=== PATIENT | female | born 1960 | race Hispanic/Latino ===

== ENCOUNTER → 2017-05-29 | Outpatient (CLI) | payer MEDICARE ==
[2017-05-29 14:11] VITALS: BP 127/55
== END | disposition home or self-care (01) ==
LOC: WHH 10:30
PROVIDERS: ATTEND Podiatrist Foot & Ankle Surgery
DX: I83.013 Varicose veins of right lower extremity with ulcer of ankle (principal); L97.311 Non-pressure chronic ulcer of right ankle limited to breakdown of skin; E66.01 Morbid (severe) obesity due to excess calories; I89.0 Lymphedema, not elsewhere classified; I10 Essential (primary) hypertension
CPT/HCPCS: A6209; G0463

== ENCOUNTER → 2017-06-12 | Outpatient (CLI) | payer MEDICARE ==
[~2017-06-12] MED LIST: LIDOCAINE/PRILOCAINE CREAM 5GM TUBE TP ONE
[2017-06-12 14:48] VITALS: BP 130/52
== END | disposition home or self-care (01) ==
LOC: WHH 10:55
PROVIDERS: ATTEND Podiatrist Foot & Ankle Surgery
DX: E11.622 Type 2 diabetes mellitus with other skin ulcer (principal); L97.311 Non-pressure chronic ulcer of right ankle limited to breakdown of skin; I87.2 Venous insufficiency (chronic) (peripheral); I89.0 Lymphedema, not elsewhere classified; E66.01 Morbid (severe) obesity due to excess calories; I10 Essential (primary) hypertension
CPT/HCPCS: 11042; A6209; J3490

== ENCOUNTER → 2017-06-26 | Outpatient (CLI) | payer MEDICARE ==
[2017-06-26 13:28] VITALS: BP 141/64
== END | disposition home or self-care (01) ==
LOC: WHH 11:00
PROVIDERS: ATTEND Podiatrist Foot & Ankle Surgery
DX: E11.622 Type 2 diabetes mellitus with other skin ulcer (principal); L97.311 Non-pressure chronic ulcer of right ankle limited to breakdown of skin; I87.2 Venous insufficiency (chronic) (peripheral); I89.0 Lymphedema, not elsewhere classified; E66.01 Morbid (severe) obesity due to excess calories; I10 Essential (primary) hypertension
CPT/HCPCS: A6209; G0463

== ENCOUNTER → 2017-07-10 | Outpatient (CLI) | payer MEDICARE ==
[2017-07-10 15:22] VITALS: BP 135/72
== END | disposition home or self-care (01) ==
LOC: WHH 11:00
PROVIDERS: ATTEND Podiatrist Foot & Ankle Surgery
DX: I87.2 Venous insufficiency (chronic) (peripheral) (principal); L97.311 Non-pressure chronic ulcer of right ankle limited to breakdown of skin; I10 Essential (primary) hypertension; I89.0 Lymphedema, not elsewhere classified; E66.01 Morbid (severe) obesity due to excess calories
CPT/HCPCS: A6209; A6450; G0463

== ENCOUNTER → 2017-07-31 | Outpatient (CLI) | payer MEDICARE ==
[2017-07-31 12:09] VITALS: BP 127/50
== END | disposition home or self-care (01) ==
LOC: WHH 10:30
PROVIDERS: ATTEND Podiatrist Foot & Ankle Surgery
DX: E11.622 Type 2 diabetes mellitus with other skin ulcer (principal); L97.311 Non-pressure chronic ulcer of right ankle limited to breakdown of skin; I87.2 Venous insufficiency (chronic) (peripheral); I10 Essential (primary) hypertension; I89.0 Lymphedema, not elsewhere classified; E66.01 Morbid (severe) obesity due to excess calories
CPT/HCPCS: 29580; A6209; A6450; A6456; G0463

== ENCOUNTER → 2017-08-14 | Outpatient (CLI) | payer MEDICARE ==
[2017-08-14 14:05] VITALS: BP 116/61
== END | disposition home or self-care (01) ==
LOC: WHH 11:00
PROVIDERS: ATTEND Podiatrist Foot & Ankle Surgery
DX: E11.622 Type 2 diabetes mellitus with other skin ulcer (principal); L97.311 Non-pressure chronic ulcer of right ankle limited to breakdown of skin; I87.2 Venous insufficiency (chronic) (peripheral); I10 Essential (primary) hypertension; I89.0 Lymphedema, not elsewhere classified; E66.01 Morbid (severe) obesity due to excess calories
CPT/HCPCS: 29580; A6209; A6456; G0463

== ENCOUNTER → 2017-09-04 | Outpatient (CLI) | payer MEDICARE ==
[2017-09-04 13:50] VITALS: BP 137/70
== END | disposition home or self-care (01) ==
LOC: WHH 10:45
PROVIDERS: ATTEND Podiatrist Foot & Ankle Surgery
DX: E11.622 Type 2 diabetes mellitus with other skin ulcer (principal); L97.311 Non-pressure chronic ulcer of right ankle limited to breakdown of skin; I87.2 Venous insufficiency (chronic) (peripheral); I10 Essential (primary) hypertension; I89.0 Lymphedema, not elsewhere classified; E66.01 Morbid (severe) obesity due to excess calories
CPT/HCPCS: 29580; A6209; A6450; A6456; G0463

== ENCOUNTER → 2017-10-03 | Outpatient (CLI) | payer MEDICARE ==
[2017-10-03 13:29] VITALS: BP 138/78
== END | disposition home or self-care (01) ==
LOC: WHH 10:15
PROVIDERS: ATTEND Surgery
DX: E11.622 Type 2 diabetes mellitus with other skin ulcer (principal); L97.311 Non-pressure chronic ulcer of right ankle limited to breakdown of skin; L97.111 Non-pressure chronic ulcer of right thigh limited to breakdown of skin; I87.2 Venous insufficiency (chronic) (peripheral); I10 Essential (primary) hypertension; I89.0 Lymphedema, not elsewhere classified; E66.01 Morbid (severe) obesity due to excess calories; E03.9 Hypothyroidism, unspecified
CPT/HCPCS: 29580; A6197; A6450; A6456; G0463

== ENCOUNTER → 2017-10-10 | Outpatient (CLI) | payer MEDICARE ==
[~2017-10-10] MED LIST changes: -LIDOCAINE/PRILOCAINE CREAM 5GM TUBE TP ONE; +SILVER NITRATE APPLICATOR 1 SWAB TP ONE
[2017-10-10 13:56] VITALS: BP 160/76
== END | disposition home or self-care (01) ==
LOC: WHH 10:30
PROVIDERS: ATTEND Surgery
DX: L97.311 Non-pressure chronic ulcer of right ankle limited to breakdown of skin (principal); L97.111 Non-pressure chronic ulcer of right thigh limited to breakdown of skin; I89.0 Lymphedema, not elsewhere classified; E66.01 Morbid (severe) obesity due to excess calories; I10 Essential (primary) hypertension; E03.9 Hypothyroidism, unspecified; I87.2 Venous insufficiency (chronic) (peripheral)
CPT/HCPCS: A6021; A6253; G0463

== ENCOUNTER → 2017-10-17 | Outpatient (CLI) | payer MEDICARE ==
[~2017-10-17] MED LIST changes: +LIDOCAINE/PRILOCAINE CREAM 5GM TUBE TP ONE; -SILVER NITRATE APPLICATOR 1 SWAB TP ONE
[2017-10-17 13:42] VITALS: BP 139/76
== END | disposition home or self-care (01) ==
LOC: WHH 10:30
PROVIDERS: ATTEND Surgery
DX: L97.311 Non-pressure chronic ulcer of right ankle limited to breakdown of skin (principal); L97.111 Non-pressure chronic ulcer of right thigh limited to breakdown of skin; I89.0 Lymphedema, not elsewhere classified; E66.01 Morbid (severe) obesity due to excess calories; I10 Essential (primary) hypertension; I87.2 Venous insufficiency (chronic) (peripheral); E03.9 Hypothyroidism, unspecified
CPT/HCPCS: 97597; A6021; A6450; J3490

== ENCOUNTER → 2017-12-26 | Outpatient (CLI) | payer MEDICARE ==
[2017-12-26 14:05] VITALS: BP 161/95
== END | disposition home or self-care (01) ==
LOC: WHH 10:45
PROVIDERS: ATTEND Surgery
DX: E11.622 Type 2 diabetes mellitus with other skin ulcer (principal); L97.311 Non-pressure chronic ulcer of right ankle limited to breakdown of skin; L97.111 Non-pressure chronic ulcer of right thigh limited to breakdown of skin; I89.0 Lymphedema, not elsewhere classified; I87.2 Venous insufficiency (chronic) (peripheral); E66.01 Morbid (severe) obesity due to excess calories; I10 Essential (primary) hypertension; E03.9 Hypothyroidism, unspecified
CPT/HCPCS: 29580; A6022; A6450; A6456; G0463

== ENCOUNTER → 2018-01-02 | Outpatient (CLI) | payer MEDICARE ==
[2018-01-02 13:35] VITALS: BP 152/99
== END | disposition home or self-care (01) ==
LOC: WHH 10:15
PROVIDERS: ATTEND Surgery
DX: E11.622 Type 2 diabetes mellitus with other skin ulcer (principal); L97.311 Non-pressure chronic ulcer of right ankle limited to breakdown of skin; L97.111 Non-pressure chronic ulcer of right thigh limited to breakdown of skin; I89.0 Lymphedema, not elsewhere classified; I87.2 Venous insufficiency (chronic) (peripheral); E66.01 Morbid (severe) obesity due to excess calories; I10 Essential (primary) hypertension; E03.9 Hypothyroidism, unspecified
CPT/HCPCS: 11042; A6022; A6450; A6456

== ENCOUNTER → 2018-01-16 | Outpatient (CLI) | payer MEDICARE ==
[2018-01-16 13:26] VITALS: BP 154/70
== END | disposition home or self-care (01) ==
LOC: WHH 10:30
PROVIDERS: ATTEND Surgery
DX: E11.622 Type 2 diabetes mellitus with other skin ulcer (principal); L97.311 Non-pressure chronic ulcer of right ankle limited to breakdown of skin; L97.111 Non-pressure chronic ulcer of right thigh limited to breakdown of skin; I89.0 Lymphedema, not elsewhere classified; I87.2 Venous insufficiency (chronic) (peripheral); E66.01 Morbid (severe) obesity due to excess calories; I10 Essential (primary) hypertension; E03.9 Hypothyroidism, unspecified
CPT/HCPCS: 29580; A4450; A6021; A6450; A6456; G0463

== ENCOUNTER → 2018-01-30 | Outpatient (CLI) | payer MEDICARE ==
[2018-01-30 13:38] VITALS: BP 162/93
== END | disposition home or self-care (01) ==
LOC: WHH 11:00
PROVIDERS: ATTEND Surgery
DX: E11.622 Type 2 diabetes mellitus with other skin ulcer (principal); L97.311 Non-pressure chronic ulcer of right ankle limited to breakdown of skin; L97.111 Non-pressure chronic ulcer of right thigh limited to breakdown of skin; I87.2 Venous insufficiency (chronic) (peripheral); I89.0 Lymphedema, not elsewhere classified; E66.01 Morbid (severe) obesity due to excess calories; I10 Essential (primary) hypertension; E03.9 Hypothyroidism, unspecified
CPT/HCPCS: 29580; A6022; A6456; J3490

== ENCOUNTER → 2018-02-06 | Outpatient (CLI) | payer MEDICARE ==
[2018-02-06 14:07] VITALS: BP 155/100
== END | disposition home or self-care (01) ==
LOC: WHH 09:30
PROVIDERS: ATTEND Surgery
DX: E11.622 Type 2 diabetes mellitus with other skin ulcer (principal); L97.311 Non-pressure chronic ulcer of right ankle limited to breakdown of skin; L97.111 Non-pressure chronic ulcer of right thigh limited to breakdown of skin; I89.0 Lymphedema, not elsewhere classified; I87.2 Venous insufficiency (chronic) (peripheral); E66.01 Morbid (severe) obesity due to excess calories; I10 Essential (primary) hypertension; E03.9 Hypothyroidism, unspecified
CPT/HCPCS: 29580; A6022; A6456; G0463

== ENCOUNTER → 2018-02-27 | Outpatient (CLI) | payer MEDICARE ==
[2018-02-27 14:26] VITALS: BP 156/78
== END | disposition home or self-care (01) ==
LOC: WHH 08:30
PROVIDERS: ATTEND Surgery
DX: E11.622 Type 2 diabetes mellitus with other skin ulcer (principal); L97.311 Non-pressure chronic ulcer of right ankle limited to breakdown of skin; L97.111 Non-pressure chronic ulcer of right thigh limited to breakdown of skin; I89.0 Lymphedema, not elsewhere classified; I87.2 Venous insufficiency (chronic) (peripheral); E66.01 Morbid (severe) obesity due to excess calories; I10 Essential (primary) hypertension; E03.9 Hypothyroidism, unspecified
CPT/HCPCS: A6022; G0463; J3490

== ENCOUNTER → 2018-03-13 | Outpatient (CLI) | payer MEDICARE ==
[2018-03-13 14:17] VITALS: BP 139/70
== END | disposition home or self-care (01) ==
LOC: WHH 08:15
PROVIDERS: ATTEND Surgery
DX: E11.622 Type 2 diabetes mellitus with other skin ulcer (principal); L97.311 Non-pressure chronic ulcer of right ankle limited to breakdown of skin; L97.111 Non-pressure chronic ulcer of right thigh limited to breakdown of skin; I87.2 Venous insufficiency (chronic) (peripheral); I89.0 Lymphedema, not elsewhere classified; E66.01 Morbid (severe) obesity due to excess calories; I10 Essential (primary) hypertension; E03.9 Hypothyroidism, unspecified
CPT/HCPCS: 11042; 11045; A6021; A6197; A6450; A6456

== ENCOUNTER → 2018-04-17 | Outpatient (CLI) | payer MEDICARE ==
[~2018-04-17] MED LIST changes: +LIDOCAINE HCL 2% JELLY 5 ML TP ONE; -LIDOCAINE/PRILOCAINE CREAM 5GM TUBE TP ONE
[2018-04-17 13:39] VITALS: BP 141/63
== END | disposition home or self-care (01) ==
LOC: WHH 09:00
PROVIDERS: ATTEND Surgery
DX: E11.622 Type 2 diabetes mellitus with other skin ulcer (principal); L97.311 Non-pressure chronic ulcer of right ankle limited to breakdown of skin; L97.111 Non-pressure chronic ulcer of right thigh limited to breakdown of skin; I89.0 Lymphedema, not elsewhere classified; I87.2 Venous insufficiency (chronic) (peripheral); E66.01 Morbid (severe) obesity due to excess calories; I10 Essential (primary) hypertension; E03.9 Hypothyroidism, unspecified
CPT/HCPCS: 29580; A6021; A6197; A6450; A6456; G0463; 29405

== ENCOUNTER → 2018-04-24 | Outpatient (CLI) | payer MEDICARE ==
[2018-04-24 16:51] VITALS: BP 158/84
== END | disposition home or self-care (01) ==
LOC: WHH 08:30
PROVIDERS: ATTEND Podiatrist Foot & Ankle Surgery
DX: E11.622 Type 2 diabetes mellitus with other skin ulcer (principal); L97.311 Non-pressure chronic ulcer of right ankle limited to breakdown of skin; L97.112 Non-pressure chronic ulcer of right thigh with fat layer exposed; I87.2 Venous insufficiency (chronic) (peripheral); I89.0 Lymphedema, not elsewhere classified; I10 Essential (primary) hypertension; E03.9 Hypothyroidism, unspecified; E66.01 Morbid (severe) obesity due to excess calories
CPT/HCPCS: 29580; A6021; A6197; A6450; A6456; G0463

== ENCOUNTER → 2018-05-08 | Outpatient (CLI) | payer MEDICARE ==
[2018-05-08 12:35] VITALS: BP 150/82
== END ==
LOC: WHH 08:30
PROVIDERS: ATTEND Surgery
DX: L97.311 Non-pressure chronic ulcer of right ankle limited to breakdown of skin (principal); L97.111 Non-pressure chronic ulcer of right thigh limited to breakdown of skin; L03.115 Cellulitis of right lower limb; I87.2 Venous insufficiency (chronic) (peripheral); I89.0 Lymphedema, not elsewhere classified; I10 Essential (primary) hypertension; E03.9 Hypothyroidism, unspecified; E66.01 Morbid (severe) obesity due to excess calories
CPT/HCPCS: 29580; 97602; A6209; A6450; A6456; 11042; 11045

== ENCOUNTER → 2018-05-15 | Outpatient (CLI) | payer MEDICARE ==
[2018-05-15 14:08] VITALS: BP 136/69
== END | disposition home or self-care (01) ==
LOC: WHH 08:00
PROVIDERS: ATTEND Surgery
DX: L97.311 Non-pressure chronic ulcer of right ankle limited to breakdown of skin (principal); L97.111 Non-pressure chronic ulcer of right thigh limited to breakdown of skin; I87.2 Venous insufficiency (chronic) (peripheral); I89.0 Lymphedema, not elsewhere classified; I10 Essential (primary) hypertension; E03.9 Hypothyroidism, unspecified; E66.01 Morbid (severe) obesity due to excess calories
CPT/HCPCS: 29580; A6209; A6456; G0463

== ENCOUNTER → 2018-05-22 | Outpatient (CLI) | payer MEDICARE ==
[~2018-05-22] MED LIST changes: -LIDOCAINE HCL 2% JELLY 5 ML TP ONE; +LIDOCAINE/PRILOCAINE CREAM 5GM TUBE TP ONE
[2018-05-22 15:33] VITALS: BP 142/70
== END | disposition home or self-care (01) ==
LOC: WHH 08:30
PROVIDERS: ATTEND Surgery
DX: E11.622 Type 2 diabetes mellitus with other skin ulcer (principal); L97.311 Non-pressure chronic ulcer of right ankle limited to breakdown of skin; L97.111 Non-pressure chronic ulcer of right thigh limited to breakdown of skin; I89.0 Lymphedema, not elsewhere classified; I87.2 Venous insufficiency (chronic) (peripheral); I10 Essential (primary) hypertension; L03.115 Cellulitis of right lower limb; E03.9 Hypothyroidism, unspecified; E66.01 Morbid (severe) obesity due to excess calories
CPT/HCPCS: 29580; A4450; A6209; A6456; G0463; J3490

== ENCOUNTER → 2018-05-29 | Outpatient (CLI) | payer MEDICARE ==
[2018-05-29 15:38] VITALS: BP 131/74
== END | disposition home or self-care (01) ==
LOC: WHH 08:00
PROVIDERS: ATTEND Surgery
DX: E11.622 Type 2 diabetes mellitus with other skin ulcer (principal); L97.311 Non-pressure chronic ulcer of right ankle limited to breakdown of skin; L97.111 Non-pressure chronic ulcer of right thigh limited to breakdown of skin; I89.0 Lymphedema, not elsewhere classified; I87.2 Venous insufficiency (chronic) (peripheral); L03.115 Cellulitis of right lower limb; I10 Essential (primary) hypertension; E03.9 Hypothyroidism, unspecified; E66.01 Morbid (severe) obesity due to excess calories
CPT/HCPCS: 29580; A6209; A6450; A6456; G0463; J3490

== ENCOUNTER → 2018-06-12 | Outpatient (CLI) | payer MEDICARE ==
[2018-06-12 13:48] VITALS: BP 147/78
== END | disposition home or self-care (01) ==
LOC: WHH 08:00
PROVIDERS: ATTEND Surgery
DX: E11.622 Type 2 diabetes mellitus with other skin ulcer (principal); L97.311 Non-pressure chronic ulcer of right ankle limited to breakdown of skin; L97.111 Non-pressure chronic ulcer of right thigh limited to breakdown of skin; I10 Essential (primary) hypertension; I89.0 Lymphedema, not elsewhere classified; I87.2 Venous insufficiency (chronic) (peripheral); E66.01 Morbid (severe) obesity due to excess calories; E03.9 Hypothyroidism, unspecified; L03.115 Cellulitis of right lower limb
CPT/HCPCS: 29580; A6021; A6456; G0463

== ENCOUNTER → 2018-06-26 | Outpatient (CLI) | payer MEDICARE ==
[2018-06-26 13:01] VITALS: BP 173/95
== END | disposition home or self-care (01) ==
LOC: WHH 08:25
PROVIDERS: ATTEND Surgery
DX: E11.622 Type 2 diabetes mellitus with other skin ulcer (principal); L97.311 Non-pressure chronic ulcer of right ankle limited to breakdown of skin; L97.111 Non-pressure chronic ulcer of right thigh limited to breakdown of skin; I87.2 Venous insufficiency (chronic) (peripheral); E66.01 Morbid (severe) obesity due to excess calories; I89.0 Lymphedema, not elsewhere classified; I10 Essential (primary) hypertension; E03.9 Hypothyroidism, unspecified; L03.115 Cellulitis of right lower limb
CPT/HCPCS: 17250; A6021

== ENCOUNTER → 2018-07-03 | Outpatient (CLI) | payer MEDICARE ==
[2018-07-03 13:51] VITALS: BP 149/66
== END | disposition home or self-care (01) ==
LOC: WHH 08:45
PROVIDERS: ATTEND Surgery
DX: E11.622 Type 2 diabetes mellitus with other skin ulcer (principal); I83.011 Varicose veins of right lower extremity with ulcer of thigh; L97.111 Non-pressure chronic ulcer of right thigh limited to breakdown of skin; L97.311 Non-pressure chronic ulcer of right ankle limited to breakdown of skin; I87.2 Venous insufficiency (chronic) (peripheral); I89.0 Lymphedema, not elsewhere classified; E66.01 Morbid (severe) obesity due to excess calories; I10 Essential (primary) hypertension; E03.9 Hypothyroidism, unspecified; L03.115 Cellulitis of right lower limb
CPT/HCPCS: A6021; G0463

== ENCOUNTER → 2018-07-17 | Outpatient (CLI) | payer MEDICARE ==
[2018-07-17 09:11] VITALS: BP 147/89
== END | disposition home or self-care (01) ==
LOC: WHH 08:30
PROVIDERS: ATTEND Surgery
DX: E11.622 Type 2 diabetes mellitus with other skin ulcer (principal); I83.011 Varicose veins of right lower extremity with ulcer of thigh; L97.111 Non-pressure chronic ulcer of right thigh limited to breakdown of skin; I10 Essential (primary) hypertension; I89.0 Lymphedema, not elsewhere classified; E66.01 Morbid (severe) obesity due to excess calories; I87.2 Venous insufficiency (chronic) (peripheral); E03.9 Hypothyroidism, unspecified
CPT/HCPCS: A6021; G0463

== ENCOUNTER → 2018-07-21 | Outpatient (CLI) | payer MEDICARE ==
[2018-07-21 11:18] VITALS: BP 112/61
== END | disposition home or self-care (01) ==
LOC: WHH 08:30
PROVIDERS: ATTEND Surgery
DX: E11.622 Type 2 diabetes mellitus with other skin ulcer (principal); I83.013 Varicose veins of right lower extremity with ulcer of ankle; L97.312 Non-pressure chronic ulcer of right ankle with fat layer exposed; I83.011 Varicose veins of right lower extremity with ulcer of thigh; L97.111 Non-pressure chronic ulcer of right thigh limited to breakdown of skin; L03.115 Cellulitis of right lower limb; I87.2 Venous insufficiency (chronic) (peripheral); E66.01 Morbid (severe) obesity due to excess calories; I89.0 Lymphedema, not elsewhere classified; I10 Essential (primary) hypertension; E03.9 Hypothyroidism, unspecified
CPT/HCPCS: 11042; 11045; A6021; A6450; A6456

== ENCOUNTER → 2018-08-05 | Outpatient (CLI) | payer MEDICARE ==
[2018-08-05 12:22] VITALS: BP 138/83
== END | disposition home or self-care (01) ==
LOC: WHH 08:30
PROVIDERS: ATTEND Surgery
DX: I83.013 Varicose veins of right lower extremity with ulcer of ankle (principal); L97.312 Non-pressure chronic ulcer of right ankle with fat layer exposed; I83.011 Varicose veins of right lower extremity with ulcer of thigh; L97.111 Non-pressure chronic ulcer of right thigh limited to breakdown of skin; I10 Essential (primary) hypertension; I87.2 Venous insufficiency (chronic) (peripheral); I89.0 Lymphedema, not elsewhere classified; E66.01 Morbid (severe) obesity due to excess calories; E03.9 Hypothyroidism, unspecified; L03.115 Cellulitis of right lower limb
CPT/HCPCS: 11042; A6021; A6197; A6456; 29580; 97597

== ENCOUNTER → 2018-08-12 | Outpatient (CLI) | payer MEDICARE ==
[2018-08-12 10:49] VITALS: BP 113/68
== END | disposition home or self-care (01) ==
LOC: WHH 08:45
PROVIDERS: ATTEND Surgery
DX: E11.622 Type 2 diabetes mellitus with other skin ulcer (principal); I83.011 Varicose veins of right lower extremity with ulcer of thigh; L97.111 Non-pressure chronic ulcer of right thigh limited to breakdown of skin; I83.013 Varicose veins of right lower extremity with ulcer of ankle; L97.311 Non-pressure chronic ulcer of right ankle limited to breakdown of skin; I87.2 Venous insufficiency (chronic) (peripheral); I10 Essential (primary) hypertension; I89.0 Lymphedema, not elsewhere classified; E66.01 Morbid (severe) obesity due to excess calories; E03.9 Hypothyroidism, unspecified
CPT/HCPCS: 29580; A6021; A6197; A6456; G0463

== ENCOUNTER → 2018-08-18 | Outpatient (CLI) | payer MEDICARE ==
[2018-08-18 10:20] VITALS: BP 127/68
== END | disposition home or self-care (01) ==
LOC: WHH 08:15
PROVIDERS: ATTEND Surgery
DX: E11.622 Type 2 diabetes mellitus with other skin ulcer (principal); I83.013 Varicose veins of right lower extremity with ulcer of ankle; I83.011 Varicose veins of right lower extremity with ulcer of thigh; L97.311 Non-pressure chronic ulcer of right ankle limited to breakdown of skin; L97.111 Non-pressure chronic ulcer of right thigh limited to breakdown of skin; I10 Essential (primary) hypertension; E03.9 Hypothyroidism, unspecified; I89.0 Lymphedema, not elsewhere classified; I87.2 Venous insufficiency (chronic) (peripheral); L03.115 Cellulitis of right lower limb; E66.01 Morbid (severe) obesity due to excess calories
CPT/HCPCS: 29580; A6021; A6197; A6456; G0463

== ENCOUNTER → 2018-08-25 | Outpatient (CLI) | payer MEDICARE ==
[2018-08-25 13:54] VITALS: BP 107/65
== END | disposition home or self-care (01) ==
LOC: WHH 08:25
PROVIDERS: ATTEND Surgery
DX: E11.622 Type 2 diabetes mellitus with other skin ulcer (principal); I83.013 Varicose veins of right lower extremity with ulcer of ankle; L97.311 Non-pressure chronic ulcer of right ankle limited to breakdown of skin; I83.011 Varicose veins of right lower extremity with ulcer of thigh; L97.111 Non-pressure chronic ulcer of right thigh limited to breakdown of skin; I10 Essential (primary) hypertension; I87.2 Venous insufficiency (chronic) (peripheral); E66.01 Morbid (severe) obesity due to excess calories; E03.9 Hypothyroidism, unspecified; I89.0 Lymphedema, not elsewhere classified
CPT/HCPCS: 29580; A6022; A6197; A6456; G0463

== ENCOUNTER → 2018-09-04 | Outpatient (CLI) | payer MEDICARE ==
[2018-09-04 13:33] VITALS: BP 85/62
== END | disposition home or self-care (01) ==
LOC: WHH 08:30
PROVIDERS: ATTEND Surgery
DX: E11.622 Type 2 diabetes mellitus with other skin ulcer (principal); I83.013 Varicose veins of right lower extremity with ulcer of ankle; L97.311 Non-pressure chronic ulcer of right ankle limited to breakdown of skin; I83.011 Varicose veins of right lower extremity with ulcer of thigh; L97.111 Non-pressure chronic ulcer of right thigh limited to breakdown of skin; I10 Essential (primary) hypertension; I87.2 Venous insufficiency (chronic) (peripheral); E66.01 Morbid (severe) obesity due to excess calories; E03.9 Hypothyroidism, unspecified; I89.0 Lymphedema, not elsewhere classified
CPT/HCPCS: 29580; 87070; 87077; 87186; A6021; A6197; A6456; G0463

== ENCOUNTER → 2018-09-11 | Outpatient (CLI) | payer MEDICARE ==
[2018-09-11 13:59] VITALS: BP 125/82
== END | disposition home or self-care (01) ==
LOC: WHH 10:00
PROVIDERS: ATTEND Surgery
DX: E11.622 Type 2 diabetes mellitus with other skin ulcer (principal); I83.013 Varicose veins of right lower extremity with ulcer of ankle; L97.311 Non-pressure chronic ulcer of right ankle limited to breakdown of skin; I83.011 Varicose veins of right lower extremity with ulcer of thigh; L97.111 Non-pressure chronic ulcer of right thigh limited to breakdown of skin; L03.115 Cellulitis of right lower limb; I10 Essential (primary) hypertension; I87.2 Venous insufficiency (chronic) (peripheral); E66.01 Morbid (severe) obesity due to excess calories; E03.9 Hypothyroidism, unspecified; I89.0 Lymphedema, not elsewhere classified
CPT/HCPCS: 29580; A6021; A6456; G0463

== ENCOUNTER → 2018-09-15 | Outpatient (CLI) | payer MEDICARE ==
[2018-09-15 09:01] VITALS: BP 131/64
== END | disposition home or self-care (01) ==
LOC: WHH 08:40
PROVIDERS: ATTEND Surgery
DX: E11.622 Type 2 diabetes mellitus with other skin ulcer (principal); I83.013 Varicose veins of right lower extremity with ulcer of ankle; L97.311 Non-pressure chronic ulcer of right ankle limited to breakdown of skin; I83.011 Varicose veins of right lower extremity with ulcer of thigh; L97.111 Non-pressure chronic ulcer of right thigh limited to breakdown of skin; I10 Essential (primary) hypertension; I87.2 Venous insufficiency (chronic) (peripheral); E66.01 Morbid (severe) obesity due to excess calories; E03.9 Hypothyroidism, unspecified; I89.0 Lymphedema, not elsewhere classified
CPT/HCPCS: 29580; A6021; A6456; G0463

== ENCOUNTER → 2018-09-18 | Outpatient (CLI) | payer MEDICARE ==
[2018-09-18 13:33] VITALS: BP 158/83
== END | disposition home or self-care (01) ==
LOC: WHH 08:30
PROVIDERS: ATTEND Surgery
DX: E11.622 Type 2 diabetes mellitus with other skin ulcer (principal); I83.013 Varicose veins of right lower extremity with ulcer of ankle; L97.311 Non-pressure chronic ulcer of right ankle limited to breakdown of skin; I83.011 Varicose veins of right lower extremity with ulcer of thigh; L97.111 Non-pressure chronic ulcer of right thigh limited to breakdown of skin; L03.115 Cellulitis of right lower limb; I10 Essential (primary) hypertension; I87.2 Venous insufficiency (chronic) (peripheral); E66.01 Morbid (severe) obesity due to excess calories; E03.9 Hypothyroidism, unspecified; I89.0 Lymphedema, not elsewhere classified
CPT/HCPCS: 29580; A6021; A6456; G0463

== ENCOUNTER → 2018-09-22 | Outpatient (CLI) | payer MEDICARE ==
[2018-09-22 09:04] VITALS: BP 167/75
== END | disposition home or self-care (01) ==
LOC: WHH 08:30
PROVIDERS: ATTEND Surgery
DX: E11.622 Type 2 diabetes mellitus with other skin ulcer (principal); I83.013 Varicose veins of right lower extremity with ulcer of ankle; L97.311 Non-pressure chronic ulcer of right ankle limited to breakdown of skin; I83.011 Varicose veins of right lower extremity with ulcer of thigh; L97.111 Non-pressure chronic ulcer of right thigh limited to breakdown of skin; I10 Essential (primary) hypertension; I87.2 Venous insufficiency (chronic) (peripheral); E66.01 Morbid (severe) obesity due to excess calories; E03.9 Hypothyroidism, unspecified; I89.0 Lymphedema, not elsewhere classified
CPT/HCPCS: 29580; A6021; A6456; G0463

== ENCOUNTER → 2018-09-25 | Outpatient (CLI) | payer MEDICARE ==
[2018-09-25 14:49] VITALS: BP 152/73
== END | disposition home or self-care (01) ==
LOC: WHH 08:30
PROVIDERS: ATTEND Surgery
DX: E11.622 Type 2 diabetes mellitus with other skin ulcer (principal); I83.013 Varicose veins of right lower extremity with ulcer of ankle; L97.311 Non-pressure chronic ulcer of right ankle limited to breakdown of skin; I83.011 Varicose veins of right lower extremity with ulcer of thigh; L97.111 Non-pressure chronic ulcer of right thigh limited to breakdown of skin; I10 Essential (primary) hypertension; I87.2 Venous insufficiency (chronic) (peripheral); I89.0 Lymphedema, not elsewhere classified; E66.01 Morbid (severe) obesity due to excess calories; E03.9 Hypothyroidism, unspecified
CPT/HCPCS: 29580; A6021; A6456; G0463

== ENCOUNTER → 2018-09-29 | Outpatient (CLI) | payer MEDICARE ==
[2018-09-29 10:59] VITALS: BP 161/90
== END | disposition home or self-care (01) ==
LOC: WHH 10:30
PROVIDERS: ATTEND Surgery
DX: E11.622 Type 2 diabetes mellitus with other skin ulcer (principal); I83.013 Varicose veins of right lower extremity with ulcer of ankle; L97.311 Non-pressure chronic ulcer of right ankle limited to breakdown of skin; I83.011 Varicose veins of right lower extremity with ulcer of thigh; I10 Essential (primary) hypertension; I87.2 Venous insufficiency (chronic) (peripheral); I89.0 Lymphedema, not elsewhere classified; E66.01 Morbid (severe) obesity due to excess calories; E03.9 Hypothyroidism, unspecified
CPT/HCPCS: 29580; A6021; A6456; G0463

== ENCOUNTER → 2018-10-02 | Outpatient (CLI) | payer MEDICARE ==
[2018-10-02 13:36] VITALS: BP 133/82
== END | disposition home or self-care (01) ==
LOC: WHH 10:45
PROVIDERS: ATTEND Surgery
DX: E11.622 Type 2 diabetes mellitus with other skin ulcer (principal); I83.011 Varicose veins of right lower extremity with ulcer of thigh; L97.111 Non-pressure chronic ulcer of right thigh limited to breakdown of skin; I10 Essential (primary) hypertension; I87.2 Venous insufficiency (chronic) (peripheral); I89.0 Lymphedema, not elsewhere classified; E66.01 Morbid (severe) obesity due to excess calories; E03.9 Hypothyroidism, unspecified
CPT/HCPCS: 29580; A6021; A6456; G0463

== ENCOUNTER → 2018-10-06 | Outpatient (CLI) | payer MEDICARE ==
[2018-10-06 12:06] VITALS: BP 98/65
== END | disposition home or self-care (01) ==
LOC: WHH 11:30
PROVIDERS: ATTEND Surgery
DX: E11.622 Type 2 diabetes mellitus with other skin ulcer (principal); I83.011 Varicose veins of right lower extremity with ulcer of thigh; L97.111 Non-pressure chronic ulcer of right thigh limited to breakdown of skin; I83.013 Varicose veins of right lower extremity with ulcer of ankle; L97.311 Non-pressure chronic ulcer of right ankle limited to breakdown of skin; I10 Essential (primary) hypertension; I87.2 Venous insufficiency (chronic) (peripheral); I89.0 Lymphedema, not elsewhere classified; E66.01 Morbid (severe) obesity due to excess calories
CPT/HCPCS: 29580; A6021; A6456; G0463

== ENCOUNTER → 2018-10-06 | Outpatient (CLI) | payer MEDICARE | END | disposition home or self-care (01) | LOC: SHCH 10:52 | PROVIDERS: ATTEND Internal Medicine Cardiovascular Disease | DX: I87.2 Venous insufficiency (chronic) (peripheral) (principal) | CPT/HCPCS: 93970 ==

== ENCOUNTER → 2018-10-09 | Outpatient (CLI) | payer MEDICARE ==
[2018-10-09 12:20] VITALS: BP 126/78
== END | disposition home or self-care (01) ==
LOC: WHH 10:30
PROVIDERS: ATTEND Surgery
DX: E11.622 Type 2 diabetes mellitus with other skin ulcer (principal); I83.011 Varicose veins of right lower extremity with ulcer of thigh; L97.111 Non-pressure chronic ulcer of right thigh limited to breakdown of skin; I10 Essential (primary) hypertension; I87.2 Venous insufficiency (chronic) (peripheral); I89.0 Lymphedema, not elsewhere classified; E66.01 Morbid (severe) obesity due to excess calories; E03.9 Hypothyroidism, unspecified
CPT/HCPCS: 29580; A6021; A6456; G0463

== ENCOUNTER → 2018-10-23 | Outpatient (CLI) | payer MEDICARE ==
[2018-10-23 14:07] VITALS: BP 133/56
== END | disposition home or self-care (01) ==
LOC: WHH 10:30
PROVIDERS: ATTEND Surgery
DX: I83.018 Varicose veins of right lower extremity with ulcer other part of lower leg (principal); I83.013 Varicose veins of right lower extremity with ulcer of ankle; E11.622 Type 2 diabetes mellitus with other skin ulcer; L97.811 Non-pressure chronic ulcer of other part of right lower leg limited to breakdown of skin; L97.311 Non-pressure chronic ulcer of right ankle limited to breakdown of skin; E03.9 Hypothyroidism, unspecified; I10 Essential (primary) hypertension; E66.01 Morbid (severe) obesity due to excess calories; I87.2 Venous insufficiency (chronic) (peripheral); I89.0 Lymphedema, not elsewhere classified
CPT/HCPCS: 29580; A6021; A6456; G0463

== ENCOUNTER → 2018-12-11 | Outpatient (CLI) | payer MEDICARE ==
[2018-12-11 13:13] VITALS: BP 180/98
== END | disposition home or self-care (01) ==
LOC: WHH 10:45
PROVIDERS: ATTEND Surgery
DX: I83.018 Varicose veins of right lower extremity with ulcer other part of lower leg (principal); I83.013 Varicose veins of right lower extremity with ulcer of ankle; E11.622 Type 2 diabetes mellitus with other skin ulcer; L97.311 Non-pressure chronic ulcer of right ankle limited to breakdown of skin; L97.811 Non-pressure chronic ulcer of other part of right lower leg limited to breakdown of skin; I10 Essential (primary) hypertension; I87.2 Venous insufficiency (chronic) (peripheral); I89.0 Lymphedema, not elsewhere classified; E03.9 Hypothyroidism, unspecified; E66.01 Morbid (severe) obesity due to excess calories
CPT/HCPCS: 29580; A6021; A6209; A6456; 11042

== ENCOUNTER → 2018-12-25 | Outpatient (CLI) | payer MEDICARE ==
[2018-12-25 16:47] VITALS: BP 139/90
== END | disposition home or self-care (01) ==
LOC: WHH 10:30
PROVIDERS: ATTEND Surgery
DX: E11.622 Type 2 diabetes mellitus with other skin ulcer (principal); I83.011 Varicose veins of right lower extremity with ulcer of thigh; L97.111 Non-pressure chronic ulcer of right thigh limited to breakdown of skin; I89.0 Lymphedema, not elsewhere classified; I87.2 Venous insufficiency (chronic) (peripheral); I10 Essential (primary) hypertension; E66.01 Morbid (severe) obesity due to excess calories; E03.9 Hypothyroidism, unspecified
CPT/HCPCS: 29580; A6021; A6456; G0463

== ENCOUNTER → 2019-01-01 | Outpatient (CLI) | payer MEDICARE ==
[2019-01-01 14:46] VITALS: BP 171/77
== END | disposition home or self-care (01) ==
LOC: WHH 10:30
PROVIDERS: ATTEND Surgery
DX: E11.622 Type 2 diabetes mellitus with other skin ulcer (principal); I83.013 Varicose veins of right lower extremity with ulcer of ankle; L97.318 Non-pressure chronic ulcer of right ankle with other specified severity; I83.011 Varicose veins of right lower extremity with ulcer of thigh; L97.111 Non-pressure chronic ulcer of right thigh limited to breakdown of skin; I87.2 Venous insufficiency (chronic) (peripheral); I10 Essential (primary) hypertension; I89.0 Lymphedema, not elsewhere classified; E66.01 Morbid (severe) obesity due to excess calories; E03.9 Hypothyroidism, unspecified
CPT/HCPCS: 29580; A6021; A6456; G0463

== ENCOUNTER → 2019-01-15 | Outpatient (CLI) | payer MEDICARE ==
[2019-01-15 15:39] VITALS: BP 119/61
== END | disposition home or self-care (01) ==
LOC: WHH 10:30
PROVIDERS: ATTEND Surgery
DX: E11.622 Type 2 diabetes mellitus with other skin ulcer (principal); I83.013 Varicose veins of right lower extremity with ulcer of ankle; L97.318 Non-pressure chronic ulcer of right ankle with other specified severity; I83.011 Varicose veins of right lower extremity with ulcer of thigh; L97.111 Non-pressure chronic ulcer of right thigh limited to breakdown of skin; I87.2 Venous insufficiency (chronic) (peripheral); I10 Essential (primary) hypertension; I89.0 Lymphedema, not elsewhere classified; E66.01 Morbid (severe) obesity due to excess calories; E03.9 Hypothyroidism, unspecified
CPT/HCPCS: 29580; A6022; A6456; G0463

== ENCOUNTER → 2019-02-05 | Outpatient (CLI) | payer MEDICARE ==
[2019-02-05 13:22] VITALS: BP 136/86
== END | disposition home or self-care (01) ==
LOC: WHH 09:30
PROVIDERS: ATTEND Surgery
DX: E11.622 Type 2 diabetes mellitus with other skin ulcer (principal); I83.011 Varicose veins of right lower extremity with ulcer of thigh; L97.111 Non-pressure chronic ulcer of right thigh limited to breakdown of skin; L03.115 Cellulitis of right lower limb; I10 Essential (primary) hypertension; I87.2 Venous insufficiency (chronic) (peripheral); I89.0 Lymphedema, not elsewhere classified; E03.9 Hypothyroidism, unspecified; E66.01 Morbid (severe) obesity due to excess calories
CPT/HCPCS: A6021; G0463

== ENCOUNTER → 2019-02-19 | Outpatient (CLI) | payer MEDICARE ==
[2019-02-19 12:57] VITALS: BP 143/79
== END | disposition home or self-care (01) ==
LOC: WHH 09:30
PROVIDERS: ATTEND Surgery
DX: E11.622 Type 2 diabetes mellitus with other skin ulcer (principal); I83.011 Varicose veins of right lower extremity with ulcer of thigh; L97.111 Non-pressure chronic ulcer of right thigh limited to breakdown of skin; L03.115 Cellulitis of right lower limb; I10 Essential (primary) hypertension; I87.2 Venous insufficiency (chronic) (peripheral); I89.0 Lymphedema, not elsewhere classified; E03.9 Hypothyroidism, unspecified; E66.01 Morbid (severe) obesity due to excess calories
CPT/HCPCS: A6021; G0463

== ENCOUNTER → 2019-02-26 | Outpatient (CLI) | payer MEDICARE ==
[~2019-02-26] MED LIST changes: +HONEY 1 APPL/ML TUBE TP ONE; -LIDOCAINE/PRILOCAINE CREAM 5GM TUBE TP ONE
[2019-02-26 13:21] VITALS: BP 164/90
== END | disposition home or self-care (01) ==
LOC: WHH 09:30
PROVIDERS: ATTEND Surgery
DX: E11.622 Type 2 diabetes mellitus with other skin ulcer (principal); I83.011 Varicose veins of right lower extremity with ulcer of thigh; L97.111 Non-pressure chronic ulcer of right thigh limited to breakdown of skin; L03.115 Cellulitis of right lower limb; I10 Essential (primary) hypertension; I87.2 Venous insufficiency (chronic) (peripheral); I89.0 Lymphedema, not elsewhere classified; E03.9 Hypothyroidism, unspecified; E66.01 Morbid (severe) obesity due to excess calories
CPT/HCPCS: A6021; G0463

== ENCOUNTER → 2019-03-05 | Outpatient (CLI) | payer MEDICARE ==
[2019-03-05 10:23] VITALS: BP 165/73
== END | disposition home or self-care (01) ==
LOC: WHH 09:30
PROVIDERS: ATTEND Surgery
DX: E11.622 Type 2 diabetes mellitus with other skin ulcer (principal); I83.011 Varicose veins of right lower extremity with ulcer of thigh; L97.111 Non-pressure chronic ulcer of right thigh limited to breakdown of skin; I83.013 Varicose veins of right lower extremity with ulcer of ankle; L97.311 Non-pressure chronic ulcer of right ankle limited to breakdown of skin; L03.115 Cellulitis of right lower limb; I10 Essential (primary) hypertension; I87.2 Venous insufficiency (chronic) (peripheral); I89.0 Lymphedema, not elsewhere classified; E03.9 Hypothyroidism, unspecified; E66.01 Morbid (severe) obesity due to excess calories
CPT/HCPCS: 29580; A6197; A6456; G0463

== ENCOUNTER → 2019-04-03 | Outpatient (CLI) | payer MEDICARE ==
[~2019-04-03] MED LIST changes: -HONEY 1 APPL/ML TUBE TP ONE; +LIDOCAINE HCL 2% JELLY 5 ML TP ONE
[2019-04-03 13:48] VITALS: BP 161/66
== END | disposition home or self-care (01) ==
LOC: WHH 08:35
PROVIDERS: ATTEND Surgery
DX: E11.622 Type 2 diabetes mellitus with other skin ulcer (principal); I83.011 Varicose veins of right lower extremity with ulcer of thigh; L97.111 Non-pressure chronic ulcer of right thigh limited to breakdown of skin; I83.013 Varicose veins of right lower extremity with ulcer of ankle; L97.311 Non-pressure chronic ulcer of right ankle limited to breakdown of skin; L03.115 Cellulitis of right lower limb; I10 Essential (primary) hypertension; I87.2 Venous insufficiency (chronic) (peripheral); I89.0 Lymphedema, not elsewhere classified; E03.9 Hypothyroidism, unspecified; E66.01 Morbid (severe) obesity due to excess calories
CPT/HCPCS: 29580; A6021; A6197; A6456; G0463

== ENCOUNTER → 2019-04-23 | Outpatient (CLI) | payer MEDICARE ==
[2019-04-23 14:28] VITALS: BP 185/92
== END | disposition home or self-care (01) ==
LOC: WHH 08:45
PROVIDERS: ATTEND Surgery
DX: E11.622 Type 2 diabetes mellitus with other skin ulcer (principal); I83.011 Varicose veins of right lower extremity with ulcer of thigh; L97.111 Non-pressure chronic ulcer of right thigh limited to breakdown of skin; I83.013 Varicose veins of right lower extremity with ulcer of ankle; L97.311 Non-pressure chronic ulcer of right ankle limited to breakdown of skin; L03.115 Cellulitis of right lower limb; I10 Essential (primary) hypertension; I87.2 Venous insufficiency (chronic) (peripheral); I89.0 Lymphedema, not elsewhere classified; E03.9 Hypothyroidism, unspecified; E66.01 Morbid (severe) obesity due to excess calories
CPT/HCPCS: 29580; A6197; A6456; G0463

== ENCOUNTER → 2019-05-07 | Outpatient (CLI) | payer MEDICARE ==
[2019-05-07 12:57] VITALS: BP 140/80
== END | disposition home or self-care (01) ==
LOC: WHH 09:00
PROVIDERS: ATTEND Surgery
DX: I83.013 Varicose veins of right lower extremity with ulcer of ankle (principal); E11.622 Type 2 diabetes mellitus with other skin ulcer; L97.311 Non-pressure chronic ulcer of right ankle limited to breakdown of skin; I83.011 Varicose veins of right lower extremity with ulcer of thigh; L97.111 Non-pressure chronic ulcer of right thigh limited to breakdown of skin; L03.115 Cellulitis of right lower limb; I89.0 Lymphedema, not elsewhere classified; I87.2 Venous insufficiency (chronic) (peripheral); I10 Essential (primary) hypertension; E03.9 Hypothyroidism, unspecified; E66.01 Morbid (severe) obesity due to excess calories
CPT/HCPCS: 29580; A6021; A6196; A6456; G0463

== ENCOUNTER → 2019-05-28 | Outpatient (CLI) | payer MEDICARE ==
[2019-05-28 16:06] VITALS: BP 133/87
== END | disposition home or self-care (01) ==
LOC: WHH 09:30
PROVIDERS: ATTEND Surgery
DX: E11.622 Type 2 diabetes mellitus with other skin ulcer (principal); I83.013 Varicose veins of right lower extremity with ulcer of ankle; L97.312 Non-pressure chronic ulcer of right ankle with fat layer exposed; I83.011 Varicose veins of right lower extremity with ulcer of thigh; L97.111 Non-pressure chronic ulcer of right thigh limited to breakdown of skin; I10 Essential (primary) hypertension; I87.2 Venous insufficiency (chronic) (peripheral); I89.0 Lymphedema, not elsewhere classified; E03.9 Hypothyroidism, unspecified; E66.01 Morbid (severe) obesity due to excess calories
CPT/HCPCS: 11042; A6021; A6197; A6456; 29580

== ENCOUNTER → 2019-06-11 | Outpatient (CLI) | payer MEDICARE ==
[2019-06-11 15:20] VITALS: BP 118/74
== END | disposition home or self-care (01) ==
LOC: WHH 09:45
PROVIDERS: ATTEND Surgery
DX: E11.622 Type 2 diabetes mellitus with other skin ulcer (principal); I83.013 Varicose veins of right lower extremity with ulcer of ankle; L97.312 Non-pressure chronic ulcer of right ankle with fat layer exposed; I83.011 Varicose veins of right lower extremity with ulcer of thigh; L97.111 Non-pressure chronic ulcer of right thigh limited to breakdown of skin; I10 Essential (primary) hypertension; I87.2 Venous insufficiency (chronic) (peripheral); I89.0 Lymphedema, not elsewhere classified; E03.9 Hypothyroidism, unspecified; E66.01 Morbid (severe) obesity due to excess calories
CPT/HCPCS: 11042; A6021; A6197

== ENCOUNTER → 2019-07-30 | Outpatient (CLI) | payer MEDICARE ==
[2019-07-30 12:01] VITALS: BP 137/75
== END | disposition home or self-care (01) ==
LOC: WHH 09:00
PROVIDERS: ATTEND Surgery
DX: E11.622 Type 2 diabetes mellitus with other skin ulcer (principal); I83.013 Varicose veins of right lower extremity with ulcer of ankle; L97.312 Non-pressure chronic ulcer of right ankle with fat layer exposed; I83.011 Varicose veins of right lower extremity with ulcer of thigh; L97.111 Non-pressure chronic ulcer of right thigh limited to breakdown of skin; E03.9 Hypothyroidism, unspecified; E66.01 Morbid (severe) obesity due to excess calories; I10 Essential (primary) hypertension; I87.2 Venous insufficiency (chronic) (peripheral); I89.0 Lymphedema, not elsewhere classified
CPT/HCPCS: 11042; 11045; A6022; A6197; A6456

== ENCOUNTER → 2019-08-06 | Outpatient (CLI) | payer MEDICARE ==
[~2019-08-06] MED LIST changes: +HONEY 1 APPL/ML TUBE TP ONE; -LIDOCAINE HCL 2% JELLY 5 ML TP ONE
[2019-08-06 14:40] VITALS: BP 141/75
== END | disposition home or self-care (01) ==
LOC: WHH 09:00
PROVIDERS: ATTEND Surgery
DX: E11.622 Type 2 diabetes mellitus with other skin ulcer (principal); I83.018 Varicose veins of right lower extremity with ulcer other part of lower leg; L97.312 Non-pressure chronic ulcer of right ankle with fat layer exposed; I83.011 Varicose veins of right lower extremity with ulcer of thigh; L97.111 Non-pressure chronic ulcer of right thigh limited to breakdown of skin; I89.0 Lymphedema, not elsewhere classified; I10 Essential (primary) hypertension; I87.2 Venous insufficiency (chronic) (peripheral); E66.01 Morbid (severe) obesity due to excess calories; E03.9 Hypothyroidism, unspecified
CPT/HCPCS: 11042; 11045; A6022; A6452

== ENCOUNTER → 2019-08-20 | Outpatient (CLI) | payer MEDICARE ==
[2019-08-20 11:55] VITALS: BP 151/89
== END | disposition home or self-care (01) ==
LOC: WHH 08:30
PROVIDERS: ATTEND Surgery
DX: I83.011 Varicose veins of right lower extremity with ulcer of thigh (principal); E11.622 Type 2 diabetes mellitus with other skin ulcer; L97.111 Non-pressure chronic ulcer of right thigh limited to breakdown of skin; I83.013 Varicose veins of right lower extremity with ulcer of ankle; L97.311 Non-pressure chronic ulcer of right ankle limited to breakdown of skin; I10 Essential (primary) hypertension; I89.0 Lymphedema, not elsewhere classified; I87.2 Venous insufficiency (chronic) (peripheral); E03.9 Hypothyroidism, unspecified; E66.01 Morbid (severe) obesity due to excess calories
CPT/HCPCS: 29580; A6022; A6197; A6456; G0463

== ENCOUNTER → 2019-09-10 | Outpatient (CLI) | payer MEDICARE ==
[2019-09-10 12:20] VITALS: BP 136/76
== END | disposition home or self-care (01) ==
LOC: WHH 10:00
PROVIDERS: ATTEND Surgery
DX: I83.011 Varicose veins of right lower extremity with ulcer of thigh (principal); E11.622 Type 2 diabetes mellitus with other skin ulcer; L97.111 Non-pressure chronic ulcer of right thigh limited to breakdown of skin; I83.013 Varicose veins of right lower extremity with ulcer of ankle; L97.311 Non-pressure chronic ulcer of right ankle limited to breakdown of skin; I10 Essential (primary) hypertension; I87.2 Venous insufficiency (chronic) (peripheral); I89.0 Lymphedema, not elsewhere classified; E03.9 Hypothyroidism, unspecified; E66.01 Morbid (severe) obesity due to excess calories
CPT/HCPCS: 29580; A6022; A6197 ×2; A6456; G0463

== ENCOUNTER → 2019-10-01 | Outpatient (CLI) | payer MEDICARE ==
[2019-10-01 13:47] VITALS: BP 143/95; PULSE 96; RESP 18; TEMP 98.4
== END | disposition home or self-care (01) ==
LOC: WHH 10:00
PROVIDERS: ATTEND Surgery
DX: I83.011 Varicose veins of right lower extremity with ulcer of thigh (principal); E11.622 Type 2 diabetes mellitus with other skin ulcer; I83.013 Varicose veins of right lower extremity with ulcer of ankle; L97.311 Non-pressure chronic ulcer of right ankle limited to breakdown of skin; L97.111 Non-pressure chronic ulcer of right thigh limited to breakdown of skin; I10 Essential (primary) hypertension; I89.0 Lymphedema, not elsewhere classified; I87.2 Venous insufficiency (chronic) (peripheral); E03.9 Hypothyroidism, unspecified; E66.01 Morbid (severe) obesity due to excess calories
CPT/HCPCS: 97597; A6022; A6197 ×2; A6456

== ENCOUNTER → 2019-10-22 | Outpatient (CLI) | payer MEDICARE | END | disposition home or self-care (01) | LOC: WHH 08:22 | PROVIDERS: ATTEND Surgery | DX: E11.622 Type 2 diabetes mellitus with other skin ulcer (principal); I83.013 Varicose veins of right lower extremity with ulcer of ankle; L97.312 Non-pressure chronic ulcer of right ankle with fat layer exposed; I83.011 Varicose veins of right lower extremity with ulcer of thigh; L97.111 Non-pressure chronic ulcer of right thigh limited to breakdown of skin; I89.0 Lymphedema, not elsewhere classified; I10 Essential (primary) hypertension; E03.9 Hypothyroidism, unspecified; E66.01 Morbid (severe) obesity due to excess calories; I87.2 Venous insufficiency (chronic) (peripheral); D53.9 Nutritional anemia, unspecified; Z68.43 Body mass index [BMI] 50.0-59.9, adult | CPT/HCPCS: 29580; A6022; A6196; A6456; G0463 ==

== ENCOUNTER → 2019-11-19 | Outpatient (CLI) | payer MEDICARE ==
[~2019-11-19] MED LIST changes: +FENTANYL CITRATE PF 50 MCG/1 ML 2ML VIAL ONE; -HONEY 1 APPL/ML TUBE TP ONE; +MIDAZOLAM HCL 1 MG/ML 2ML VIAL ONE
== END | disposition home or self-care (01) ==
LOC: WHH 08:25
PROVIDERS: ATTEND Surgery
DX: E11.622 Type 2 diabetes mellitus with other skin ulcer (principal); I83.013 Varicose veins of right lower extremity with ulcer of ankle; L97.312 Non-pressure chronic ulcer of right ankle with fat layer exposed; I83.011 Varicose veins of right lower extremity with ulcer of thigh; L97.111 Non-pressure chronic ulcer of right thigh limited to breakdown of skin; I89.0 Lymphedema, not elsewhere classified; I10 Essential (primary) hypertension; E03.9 Hypothyroidism, unspecified; E66.01 Morbid (severe) obesity due to excess calories; I87.2 Venous insufficiency (chronic) (peripheral); D53.9 Nutritional anemia, unspecified; Z68.43 Body mass index [BMI] 50.0-59.9, adult
CPT/HCPCS: 29580; A6022; A6197 ×2; A6456; G0463; J2250; J3010

== ENCOUNTER → 2019-12-17 | Outpatient (CLI) | payer MEDICARE | END | disposition home or self-care (01) | LOC: WHH 08:20 | PROVIDERS: ATTEND Surgery | DX: E11.622 Type 2 diabetes mellitus with other skin ulcer (principal); I83.013 Varicose veins of right lower extremity with ulcer of ankle; L97.312 Non-pressure chronic ulcer of right ankle with fat layer exposed; I83.011 Varicose veins of right lower extremity with ulcer of thigh; L97.111 Non-pressure chronic ulcer of right thigh limited to breakdown of skin; I89.0 Lymphedema, not elsewhere classified; I10 Essential (primary) hypertension; E03.9 Hypothyroidism, unspecified; E66.01 Morbid (severe) obesity due to excess calories; I87.2 Venous insufficiency (chronic) (peripheral); D53.9 Nutritional anemia, unspecified; Z68.43 Body mass index [BMI] 50.0-59.9, adult | CPT/HCPCS: 29580; A6022 ×2; A6197; A6456; G0463 ==

== ENCOUNTER → 2020-01-07 | Outpatient (CLI) | payer MEDICARE | END | disposition home or self-care (01) | LOC: WHH 08:30 | PROVIDERS: ATTEND Family Medicine | DX: E11.622 Type 2 diabetes mellitus with other skin ulcer (principal); I83.013 Varicose veins of right lower extremity with ulcer of ankle; L97.312 Non-pressure chronic ulcer of right ankle with fat layer exposed; I83.011 Varicose veins of right lower extremity with ulcer of thigh; L97.111 Non-pressure chronic ulcer of right thigh limited to breakdown of skin; I89.0 Lymphedema, not elsewhere classified; I10 Essential (primary) hypertension; E03.9 Hypothyroidism, unspecified; E66.01 Morbid (severe) obesity due to excess calories; I87.2 Venous insufficiency (chronic) (peripheral); D53.9 Nutritional anemia, unspecified; Z68.43 Body mass index [BMI] 50.0-59.9, adult | CPT/HCPCS: 29580; A6022; A6197; A6456; G0463 ==

== ENCOUNTER → 2020-01-28 | Outpatient (CLI) | payer MEDICARE | END | disposition home or self-care (01) | LOC: WHH 08:00 | PROVIDERS: ATTEND Family Medicine | DX: E11.622 Type 2 diabetes mellitus with other skin ulcer (principal); I83.013 Varicose veins of right lower extremity with ulcer of ankle; L97.312 Non-pressure chronic ulcer of right ankle with fat layer exposed; I83.011 Varicose veins of right lower extremity with ulcer of thigh; L97.111 Non-pressure chronic ulcer of right thigh limited to breakdown of skin; I89.0 Lymphedema, not elsewhere classified; I10 Essential (primary) hypertension; E03.9 Hypothyroidism, unspecified; E66.01 Morbid (severe) obesity due to excess calories; I87.2 Venous insufficiency (chronic) (peripheral); D53.2 Scorbutic anemia; Z68.43 Body mass index [BMI] 50.0-59.9, adult | CPT/HCPCS: 29580; A6022; A6197; A6456; G0463 ==

== ENCOUNTER → 2020-02-11 | Outpatient (CLI) | payer MEDICARE | END | disposition home or self-care (01) | LOC: WHH 08:00 | PROVIDERS: ATTEND Family Medicine | DX: E11.622 Type 2 diabetes mellitus with other skin ulcer (principal); I83.013 Varicose veins of right lower extremity with ulcer of ankle; L97.312 Non-pressure chronic ulcer of right ankle with fat layer exposed; I83.011 Varicose veins of right lower extremity with ulcer of thigh; L97.111 Non-pressure chronic ulcer of right thigh limited to breakdown of skin; I89.0 Lymphedema, not elsewhere classified; I10 Essential (primary) hypertension; E03.9 Hypothyroidism, unspecified; E66.01 Morbid (severe) obesity due to excess calories; I87.2 Venous insufficiency (chronic) (peripheral); D53.2 Scorbutic anemia; Z68.43 Body mass index [BMI] 50.0-59.9, adult | CPT/HCPCS: 29580; A6022; A6197; A6456; G0463 ==

== ENCOUNTER → 2020-03-31 | Outpatient (CLI) | payer MEDICARE | END | disposition home or self-care (01) | LOC: WHH 08:30 | PROVIDERS: ATTEND Family Medicine | DX: I89.0 Lymphedema, not elsewhere classified (principal); E11.622 Type 2 diabetes mellitus with other skin ulcer; I83.013 Varicose veins of right lower extremity with ulcer of ankle; L97.312 Non-pressure chronic ulcer of right ankle with fat layer exposed; I83.011 Varicose veins of right lower extremity with ulcer of thigh; L97.111 Non-pressure chronic ulcer of right thigh limited to breakdown of skin; I10 Essential (primary) hypertension; L57.0 Actinic keratosis; E03.9 Hypothyroidism, unspecified; E66.01 Morbid (severe) obesity due to excess calories; I87.2 Venous insufficiency (chronic) (peripheral); D53.2 Scorbutic anemia; Z68.43 Body mass index [BMI] 50.0-59.9, adult | CPT/HCPCS: 29580; A6022; A6197; A6456; G0463 ==

== ENCOUNTER → 2020-04-28 | Outpatient (CLI) | payer MEDICARE | END | disposition home or self-care (01) | LOC: WHH 09:25 | PROVIDERS: ATTEND Family Medicine | DX: I89.0 Lymphedema, not elsewhere classified (principal); E11.622 Type 2 diabetes mellitus with other skin ulcer; I83.013 Varicose veins of right lower extremity with ulcer of ankle; L97.312 Non-pressure chronic ulcer of right ankle with fat layer exposed; L89.312 Pressure ulcer of right buttock, stage 2; L98.492 Non-pressure chronic ulcer of skin of other sites with fat layer exposed; I83.011 Varicose veins of right lower extremity with ulcer of thigh; L97.111 Non-pressure chronic ulcer of right thigh limited to breakdown of skin; I10 Essential (primary) hypertension; L57.0 Actinic keratosis; E03.9 Hypothyroidism, unspecified; E66.01 Morbid (severe) obesity due to excess calories; I87.2 Venous insufficiency (chronic) (peripheral); D53.2 Scorbutic anemia; Z68.43 Body mass index [BMI] 50.0-59.9, adult | CPT/HCPCS: 29580; A6022; A6197; A6456; G0463 ==

== ENCOUNTER → 2020-05-16 | Outpatient (CLI) | payer MEDICARE | END | disposition home or self-care (01) | LOC: WHH 09:50 | PROVIDERS: ATTEND Family Medicine | DX: I89.0 Lymphedema, not elsewhere classified (principal); E11.622 Type 2 diabetes mellitus with other skin ulcer; I83.011 Varicose veins of right lower extremity with ulcer of thigh; L97.111 Non-pressure chronic ulcer of right thigh limited to breakdown of skin; I10 Essential (primary) hypertension; D53.9 Nutritional anemia, unspecified; E03.9 Hypothyroidism, unspecified; E66.9 Obesity, unspecified; L57.0 Actinic keratosis; Z68.42 Body mass index [BMI] 45.0-49.9, adult | CPT/HCPCS: 29580; A6022; A6197; A6456; G0463 ==

== ENCOUNTER → 2020-07-28 | Outpatient (CLI) | payer MEDICARE | END | disposition home or self-care (01) | LOC: WHH 08:00 | PROVIDERS: ATTEND Family Medicine | DX: I89.0 Lymphedema, not elsewhere classified (principal); E11.622 Type 2 diabetes mellitus with other skin ulcer; I83.011 Varicose veins of right lower extremity with ulcer of thigh; L97.111 Non-pressure chronic ulcer of right thigh limited to breakdown of skin; I10 Essential (primary) hypertension; D53.9 Nutritional anemia, unspecified; E03.9 Hypothyroidism, unspecified; E66.9 Obesity, unspecified; L57.0 Actinic keratosis; Z68.43 Body mass index [BMI] 50.0-59.9, adult | CPT/HCPCS: 29580; A4450; A6022; A6197; A6456; G0463 ==

== ENCOUNTER → 2020-08-25 | Outpatient (CLI) | payer MEDICARE ==
[~2020-08-25] MED LIST changes: -FENTANYL CITRATE PF 50 MCG/1 ML 2ML VIAL ONE; +LIDOCAINE HCL 2% JELLY 5 ML TP ONE; -MIDAZOLAM HCL 1 MG/ML 2ML VIAL ONE
== END | disposition home or self-care (01) ==
LOC: WHH 08:30
PROVIDERS: ATTEND Family Medicine
DX: I89.0 Lymphedema, not elsewhere classified (principal); E11.622 Type 2 diabetes mellitus with other skin ulcer; I83.011 Varicose veins of right lower extremity with ulcer of thigh; L97.111 Non-pressure chronic ulcer of right thigh limited to breakdown of skin; I10 Essential (primary) hypertension; D53.9 Nutritional anemia, unspecified; E03.9 Hypothyroidism, unspecified; E66.9 Obesity, unspecified; L57.0 Actinic keratosis; Z68.43 Body mass index [BMI] 50.0-59.9, adult
CPT/HCPCS: 29580; A4450; A6022; A6197; A6456; G0463

== ENCOUNTER → 2020-09-22 | Outpatient (CLI) | payer MEDICARE | END | disposition home or self-care (01) | LOC: WHH 08:00 | PROVIDERS: ATTEND Family Medicine | DX: I89.0 Lymphedema, not elsewhere classified (principal); E11.622 Type 2 diabetes mellitus with other skin ulcer; I83.011 Varicose veins of right lower extremity with ulcer of thigh; L97.111 Non-pressure chronic ulcer of right thigh limited to breakdown of skin; I83.013 Varicose veins of right lower extremity with ulcer of ankle; L97.311 Non-pressure chronic ulcer of right ankle limited to breakdown of skin; I10 Essential (primary) hypertension; D53.9 Nutritional anemia, unspecified; E03.9 Hypothyroidism, unspecified; E66.01 Morbid (severe) obesity due to excess calories; L57.0 Actinic keratosis; Z68.43 Body mass index [BMI] 50.0-59.9, adult | CPT/HCPCS: 29580; A4450; A6022; A6197; A6456; G0463 ==

== ENCOUNTER → 2020-10-20 | Outpatient (CLI) | payer MEDICARE | END | disposition home or self-care (01) | LOC: WHH 08:21 | PROVIDERS: ATTEND Family Medicine | DX: I89.0 Lymphedema, not elsewhere classified (principal); E11.622 Type 2 diabetes mellitus with other skin ulcer; I83.011 Varicose veins of right lower extremity with ulcer of thigh; L97.111 Non-pressure chronic ulcer of right thigh limited to breakdown of skin; I83.013 Varicose veins of right lower extremity with ulcer of ankle; L97.311 Non-pressure chronic ulcer of right ankle limited to breakdown of skin; I10 Essential (primary) hypertension; D53.9 Nutritional anemia, unspecified; E03.9 Hypothyroidism, unspecified; E66.01 Morbid (severe) obesity due to excess calories; L57.0 Actinic keratosis; Z68.43 Body mass index [BMI] 50.0-59.9, adult | CPT/HCPCS: 29580; A4450; A6022; A6197; A6456; G0463 ==

== ENCOUNTER → 2020-11-24 | Outpatient (CLI) | payer MEDICARE | END | disposition home or self-care (01) | LOC: WHH 08:21 | PROVIDERS: ATTEND Family Medicine | DX: I89.0 Lymphedema, not elsewhere classified (principal); E11.622 Type 2 diabetes mellitus with other skin ulcer; I83.011 Varicose veins of right lower extremity with ulcer of thigh; L97.111 Non-pressure chronic ulcer of right thigh limited to breakdown of skin; I83.013 Varicose veins of right lower extremity with ulcer of ankle; L97.311 Non-pressure chronic ulcer of right ankle limited to breakdown of skin; I10 Essential (primary) hypertension; D53.9 Nutritional anemia, unspecified; E03.9 Hypothyroidism, unspecified; E66.01 Morbid (severe) obesity due to excess calories; L57.0 Actinic keratosis; Z68.43 Body mass index [BMI] 50.0-59.9, adult | CPT/HCPCS: 29580; A4450; A6022; A6197; A6456; G0463 ==